=== PATIENT | female | born 1990 | race American Indian/Alaskan Native ===

== ENCOUNTER 2017-08-19 20:23 | Outpatient (CLI) | payer MEDICAID ==
[2017-08-19] MEDS ORDERED: LACTATED RINGERS 0 ML ONE ×2 (20:43→20:51)
[2017-08-19] MEDS ORDERED: PITOCin/NS 20 UNIT/1000ML DRIP 0 MILLIUNITS/0 ML BAG IV ONE (20:43)
[2017-08-19 21:21] VITALS: BP 114/67
[2017-08-19] MEDS ORDERED: LACTATED RINGERS 500 ML IV ONE (22:23)
== END 2017-08-19 23:22 | disposition home or self-care (01) ==
LOC: TRG 20:23
PROVIDERS: ATTEND Obstetrics & Gynecology
DX: O47.03 False labor before 37 completed weeks of gestation, third trimester (principal); Z87.891 Personal history of nicotine dependence; Z3A.31 31 weeks gestation of pregnancy
CPT/HCPCS: 59025; 87400; J7120; J2590